=== PATIENT | male | born 1975 | race Caucasian/White ===

== ENCOUNTER 2019-06-03 17:10 | Emergency (ER) | payer SELFPAY ==
[~2019-06-03] VITALS: Ht 177.8 cm; Wt 112.5 kg
[2019-06-03 17:50] VITALS: BP_SYST 180
--- NOTE | 2019-06-03 17:50 | NUR ---
BROUGHT IN BY LEEANNE PEREIRA, PLACED IN HALLWAY CHAIR AND TRIAGED. REPORT GIVEN TO HAKAN
[2019-06-03] MEDS ORDERED: cloNIDine HCL 0.1 MG TABLET PO ONE (18:00)
--- NOTE | 2019-06-03 18:00 | NUR ---
Patient brought in with officer for medical clearance. Patient in no signs of distress at this time. Patient does not complain of pain.
--- NOTE | 2019-06-03 18:05 | NUR ---
Dr. Ewing at bedside for examination.
[2019-06-03 18:40] VITALS: BP_SYST 108
--- NOTE | 2019-06-03 18:40 | NUR ---
Patient given written and verbal discharge instructions and verbalizes understanding. ER MD discussed with patient the results and treatment provided. Patient in stable condition. ID arm band removed. Patient educated on pain management and to follow up with PMD. Pain Scale 0/10. Opportunity for questions provided and answered. Medication side effect fact sheet provided.
== END 2019-06-03 18:40 ==
LOC: SED 17:10
DX: Z02.89 Encounter for other administrative examinations (principal); E11.9 Type 2 diabetes mellitus without complications; I10 Essential (primary) hypertension; Z86.73 Personal history of transient ischemic attack (TIA), and cerebral infarction without residual deficits
CPT/HCPCS: 99283